=== PATIENT | male | born 1930 | race Caucasian/White ===

== ENCOUNTER 2018-01-13 16:07 | Inpatient (IN) | payer OTHER ==
[~2018-01-13] VITALS: Ht 157.5 cm; Wt 49.9 kg
[~2018-01-13 16:07] MED LIST: ADVAIR 500/501 DISK IH; ADVAIR HFA120 INHALA IH; AMOX TR-K CLV1 EAC4 PO; ASPIR 8181 M1 PO; Advair HFA 115/21 IH; CEFDINIR300 MG PO; DELTASONE20 MG PO; DUONEB 2.5-0.5 M3 ML IH; LEVOFLOXACIN500 MG PO; NOHOMEMEDS; PREDNISONE1 MG PO; PREDNISONE20 MG PO; PROAIR HFA8.5 GM IH; Proventil,Ventolin H IH; SPIRIVA1 INHALATI IH; VENTOLIN HFA18 GM IH
[2018-01-13 17:03] LABS: BASOPHIL (%) 0.3 % (0-1); BASOPHIL COUNT 0.1 K/uL (0-0.1); EOSINOPHIL (%) 0 % (0-5); HEMATOCRIT 35.2 % (38.0-50.0); IMMATURE GRANULOCYTE (%) 0.5 % (0.0-0.7); LYMPHOCYTE (%) 2.7 % (15-42); LYMPHOCYTE COUNT 0.6 K/uL (1.0-2.8); MCH 29.3 PG (29.0-34.0); MCHC 31.3 G/DL (30.0-36.0); MCV 93.9 FL (86-99); MONOCYTE (%) 3.5 % (3-12); MONOCYTE COUNT 0.7 K/uL (0-0.8); NEUTROPHIL COUNT 19.1 K/uL (1.8-6.4); PLATELET COUNT 305 K/uL (156-360); RBC DIS.WIDTH-CV 13.9 % (11.8-14.6); RBC DIS.WIDTH-SD 47.9 % (39-53); RED BLOOD COUNT 3.75 M/uL (4.00-5.50); WHITE BLOOD COUNT 20.6 K/uL (4.1-10.2)
[2018-01-13 17:05] LABS: CARBON DIOXIDE (BICARBONATE) 37.1 MEQ/L (20-31)
[2018-01-13 17:10] LABS: CHLORIDE 99 mEq/L (99-109); POTASSIUM 4.5 mEq/L (3.7-5.4); SODIUM 143 mEq/L (136-147)
[2018-01-13 17:12] LABS: GLUCOSE 122 mg/dL (70-99)
[2018-01-13 17:16] LABS: CREATININE 1.3 mg/dL (0.6-1.3); GFR ESTIMATE (CALCULATED) 56 mL/min/ (58.99-99999)
[2018-01-13 17:17] LABS: UREA NITROGEN (BUN) 25 mg/dL (9-23)
[2018-01-13 17:22] LABS: TROP-I INTERPRETATION NEGATIVE; TROPONIN-I 0.02 ng/mL (0.0-0.30)
[2018-01-13] MEDS ORDERED: AUGMENTIN875 MG PO (17:41)
[2018-01-13] MEDS ORDERED: ROBITUSSIN100 MG/5 M PO (17:42)
[2018-01-13] MEDS ORDERED: ADULT ASPIRIN R81 MG PO (17:42)
[2018-01-13] MEDS ORDERED: VENTOLIN HFA18 GM IH (17:42)
[2018-01-13] MEDS ORDERED: PREDNISONE10 MG PO (17:45)
[2018-01-13] MEDS ORDERED: PEPTO BISMOL240 ML PO (17:50)
[2018-01-13 21:36] VITALS: BP 127/72
[2018-01-14] VITALS: BP 129/67
[2018-01-14 03:48] VITALS: BP 129/67
[2018-01-14 07:02] LABS: BASOPHIL (%) 0.2 % (0-1); EOSINOPHIL (%) 0 % (0-5); HEMATOCRIT 33.6 % (38.0-50.0); HEMOGLOBIN 10.5 G/DL (12.5-16.6); IMMATURE GRANULOCYTE (%) 0.6 % (0.0-0.7); LYMPHOCYTE COUNT 0.4 K/uL (1.0-2.8); MCH 29.2 PG (29.0-34.0); MCHC 31.3 G/DL (30.0-36.0); MCV 93.6 FL (86-99); MONOCYTE (%) 0.2 % (3-12); NEUTROPHIL COUNT 11.7 K/uL (1.8-6.4); PLATELET COUNT 295 K/uL (156-360); RBC DIS.WIDTH-CV 13.9 % (11.8-14.6); RBC DIS.WIDTH-SD 47.8 % (39-53); RED BLOOD COUNT 3.59 M/uL (4.00-5.50); WHITE BLOOD COUNT 12.2 K/uL (4.1-10.2)
[2018-01-14 07:10] VITALS: BP 132/72
[2018-01-14 07:36] LABS: ALBUMIN 2.7 G/DL (3.2-4.8); ALKALINE PHOSPHATASE 49 IU/L (3-129); ALT (GPT) 6 IU/L (3-49); AST (GOT) 10 IU/L (2-34); CHLORIDE 100 MEQ/L (99-109); DIRECT BILIRUBIN 0.1 mg/dL (0.0-0.3); GFR ESTIMATE (CALCULATED) > 59 mL/min/ (58.99-99999); GLUCOSE 139 mg/dL (70-99); MAGNESIUM 1.8 mg/dl (1.3-2.7); POTASSIUM 4.5 MEQ/L (3.7-5.4); SODIUM 142 MEQ/L (136-147); TOTAL BILIRUBIN 0.3 MG/DL (0.0-1.0); TOTAL PROTEIN 5.5 G/DL (6.4-8.3); UREA NITROGEN (BUN) 21 mg/dL (9-23)
[2018-01-14 12:00] VITALS: BP 111/80
[2018-01-14 16:55] VITALS: BP 143/63
[2018-01-14 19:20] VITALS: BP 123/60
[2018-01-15 00:16] VITALS: BP 128/64
[2018-01-15 03:21] VITALS: BP 122/60
[2018-01-15 06:25] LABS: HEMATOCRIT 32.7 % (38.0-50.0); HEMOGLOBIN 10.2 G/DL (12.5-16.6); MCH 29.7 PG (29.0-34.0); MCHC 31.2 G/DL (30.0-36.0); MCV 95.1 FL (86-99); PLATELET COUNT 345 K/uL (156-360); RBC DIS.WIDTH-SD 48.8 % (39-53); RED BLOOD COUNT 3.44 M/uL (4.00-5.50); WHITE BLOOD COUNT 25.3 K/uL (4.1-10.2)
[2018-01-15 06:49] LABS: CHLORIDE 106 MEQ/L (99-109); GFR ESTIMATE (CALCULATED) > 59 mL/min/ (58.99-99999); GLUCOSE 162 mg/dL (70-99); POTASSIUM 4.4 MEQ/L (3.7-5.4); SODIUM 144 MEQ/L (136-147); UREA NITROGEN (BUN) 29 mg/dL (9-23)
[2018-01-15 07:47] VITALS: BP 153/66
[2018-01-15 11:26] VITALS: BP 142/69
[2018-01-15 15:13] VITALS: BP 137/63
[2018-01-15 19:40] VITALS: BP 129/64
[2018-01-16 04:07] VITALS: BP 136/70
[2018-01-16 06:54] LABS: HEMATOCRIT 31.4 % (38.0-50.0); HEMOGLOBIN 9.9 G/DL (12.5-16.6); MCH 29.6 PG (29.0-34.0); MCHC 31.5 G/DL (30.0-36.0); PLATELET COUNT 365 K/uL (156-360); RBC DIS.WIDTH-CV 14.2 % (11.8-14.6); RBC DIS.WIDTH-SD 48.4 % (39-53); RED BLOOD COUNT 3.34 M/uL (4.00-5.50); WHITE BLOOD COUNT 24.1 K/uL (4.1-10.2)
[2018-01-16 07:20] VITALS: BP 152/72
[2018-01-16 16:29] VITALS: BP 141/79
[2018-01-16 19:35] VITALS: BP 134/65
[2018-01-17 00:20] VITALS: BP 140/67
[2018-01-17 07:39] VITALS: BP 157/82
[2018-01-17 15:48] VITALS: BP 163/79
[2018-01-17 20:31] VITALS: BP 152/79
[2018-01-18 00:24] VITALS: BP 161/70
[2018-01-18 04:03] VITALS: BP 160/79
[2018-01-18 07:25] VITALS: BP 146/74
[2018-01-18 09:21] LABS: HEMATOCRIT 38.2 % (38.0-50.0); HEMOGLOBIN 11.8 G/DL (12.5-16.6); MCH 28.6 PG (29.0-34.0); MCHC 30.9 G/DL (30.0-36.0); MCV 92.7 FL (86-99); PLATELET COUNT 422 K/uL (156-360); RBC DIS.WIDTH-SD 47.5 % (39-53); WHITE BLOOD COUNT 19.2 K/uL (4.1-10.2)
[2018-01-18 09:43] LABS: RED BLOOD COUNT 4.12 M/uL (4.00-5.50)
[2018-01-18 09:51] LABS: CHLORIDE 99 MEQ/L (99-109); GFR ESTIMATE (CALCULATED) > 59 mL/min/ (58.99-99999); GLUCOSE 145 mg/dL (70-99); POTASSIUM 4.5 MEQ/L (3.7-5.4); SODIUM 140 MEQ/L (136-147); UREA NITROGEN (BUN) 30 mg/dL (9-23)
[2018-01-18 16:03] VITALS: BP 164/85
[2018-01-19 00:02] VITALS: BP 124/77
[2018-01-19 07:00] VITALS: BP 150/90
[2018-01-19] MEDS ORDERED: AUGMENTIN875 MG PO (08:26)
[2018-01-19] MEDS ORDERED: PREDNISONE10 MG PO (08:26)
[2018-01-19] MEDS ORDERED: SPIRIVA RESPIMAT4 GM IH (08:26)
== END 2018-01-19 13:30 | disposition home health service (06) | DRG 194 ==
LOC: EME → EDBD 16:07 → EDOF 19:29 → 2EAST 19:29 → ENRESERV 19:34 → 2EAST 20:58
PROVIDERS: Emergency Medicine; Hospitalist; Internal Medicine; Physician Assistant Medical
DX: J18.9 Pneumonia, unspecified organism (principal); J44.0 Chronic obstructive pulmonary disease with (acute) lower respiratory infection; J44.1 Chronic obstructive pulmonary disease with (acute) exacerbation; J45.901 Unspecified asthma with (acute) exacerbation; J96.11 Chronic respiratory failure with hypoxia; J96.12 Chronic respiratory failure with hypercapnia; Z99.81 Dependence on supplemental oxygen; R45.850 Homicidal ideations; R45.851 Suicidal ideations; J84.10 Pulmonary fibrosis, unspecified; E86.0 Dehydration; I12.9 Hypertensive chronic kidney disease with stage 1 through stage 4 chronic kidney disease, or unspecified chronic kidney disease; N18.3 Chronic kidney disease, stage 3 (moderate); Z66 Do not resuscitate; Z51.5 Encounter for palliative care; F43.20 Adjustment disorder, unspecified; F32.9 Major depressive disorder, single episode, unspecified; D72.829 Elevated white blood cell count, unspecified; T38.0X5A Adverse effect of glucocorticoids and synthetic analogues, initial encounter; I25.10 Atherosclerotic heart disease of native coronary artery without angina pectoris; N40.0 Benign prostatic hyperplasia without lower urinary tract symptoms; R63.4 Abnormal weight loss; Z68.1 Body mass index [BMI] 19.9 or less, adult; K59.00 Constipation, unspecified; D64.9 Anemia, unspecified; R47.81 Slurred speech; G89.29 Other chronic pain; R10.13 Epigastric pain; F12.10 Cannabis abuse, uncomplicated; F10.11 Alcohol abuse, in remission; Z87.891 Personal history of nicotine dependence; Z60.2 Problems related to living alone; Z79.82 Long term (current) use of aspirin; Z91.14 Patient's other noncompliance with medication regimen; Z82.3 Family history of stroke; Z82.0 Family history of epilepsy and other diseases of the nervous system
CPT/HCPCS: 71046; 71250; 80048; 80076; 81003; 82803; 83605; 83735; 83880; 84484; 85025; 85027; 87040; 87070; 87205; 93005; 94640; 94640 76; 94667; 94668; 94760; 94799; 97530 GP; 99202; 99281; 99285; J0295; J0456; J0692; J1630; J1644; J2060; J2920; J2930; J7030; J7050

== ENCOUNTER 2018-02-16 16:07 | Inpatient (IN) | payer OTHER ==
[~2018-02-16] VITALS: Ht 162.6 cm; Wt 48.5 kg
[~2018-02-16 16:07] MED LIST changes: +ADULT ASPIRIN R81 MG PO; +AUGMENTIN875 MG PO; +PEPTO BISMOL240 ML PO; +PREDNISONE10 MG PO; +ROBITUSSIN100 MG/5 M PO; +SPIRIVA RESPIMAT4 GM IH
[2018-02-16 17:06] LABS: ALBUMIN 3.5 g/dL (3.2-4.8); CHLORIDE 104 mEq/L (99-109); POTASSIUM 4.5 mEq/L (3.7-5.4); SODIUM 143 mEq/L (136-147)
[2018-02-16 17:08] LABS: GLUCOSE 100 mg/dL (70-99)
[2018-02-16 17:09] LABS: TOTAL PROTEIN 6.1 g/dL (6.4-8.3)
[2018-02-16 17:10] LABS: TOTAL BILIRUBIN 0.3 mg/dL (0.0-1.0)
[2018-02-16 17:12] LABS: ALKALINE PHOSPHATASE 63 IU/L (3-129); CREATININE 1.2 mg/dL (0.6-1.3); GFR ESTIMATE (CALCULATED) > 59 mL/min/ (58.99-99999)
[2018-02-16 17:13] LABS: UREA NITROGEN (BUN) 27 mg/dL (9-23)
[2018-02-16 17:14] LABS: AST (GOT) 21 IU/L (2-34)
[2018-02-16 17:15] LABS: ALT (GPT) 12 IU/L (3-49)
[2018-02-16 17:22] LABS: PTT 26.4 SEC (25-37)
[2018-02-16 18:11] LABS: BASOPHIL (%) 0.4 % (0-1); BASOPHIL COUNT 0.1 K/uL (0-0.1); EOSINOPHIL (%) 0.6 % (0-5); EOSINOPHIL COUNT 0.1 K/uL (0-0.3); HEMATOCRIT 33.9 % (38.0-50.0); HEMATOLOGY COMMENT 1 SN; HEMOGLOBIN 10.7 G/DL (12.5-16.6); IMMATURE GRANULOCYTE (%) 0.5 % (0.0-0.7); LYMPHOCYTE (%) 14.3 % (15-42); MCH 29.5 PG (29.0-34.0); MCHC 31.6 G/DL (30.0-36.0); MCV 93.4 FL (86-99); MONOCYTE (%) 6.1 % (3-12); MONOCYTE COUNT 0.8 K/uL (0-0.8); NEUTROPHIL (%) 78.1 % (45-76); NEUTROPHIL COUNT 10.7 K/uL (1.8-6.4); PLAT.SUFFICIENCY ADEQUATE; PLATELET COUNT 236 K/uL (156-360); RBC DIS.WIDTH-CV 15.2 % (11.8-14.6); RBC DIS.WIDTH-SD 52.3 % (39-53); RED BLOOD COUNT 3.63 M/uL (4.00-5.50); WHITE BLOOD COUNT 13.7 K/uL (4.1-10.2)
[2018-02-16 18:43] LABS: APPEARANCE CLEAR ((CLEAR)); BILIRUBIN NEGATIVE; BLOOD NEGATIVE; COLOR STRAW ((YELLOW)); GLUCOSE (STRIP) NEGATIVE; KETONES NEGATIVE; LEUKOCYTES TRACE; NITRITE NEGATIVE; PROTEIN (STRIP) NEGATIVE; SPECIFIC GRAVITY 1.014 (1.000-1.030); UROBILINOGEN 0.2 MG/DL (0.2-1.0)
[2018-02-16 18:53] LABS: BACTERIA NONE SEEN /HPF; EPITHELIAL CELLS RARE /HPF; MUCUS NONE SEEN /LPF; RED BLOOD CELLS 0-5 /HPF (0-5); UCUL ADDED? NO; WHITE BLOOD CELLS 0-5 /HPF (0-5)
[2018-02-16] MEDS ORDERED: LITE COAT ASPI325 M1 PO (19:06)
[2018-02-16] MEDS ORDERED: SPIRIVA RESPIMAT4 GM IH (19:06)
[2018-02-16 21:11] LABS: HEMATOCRIT 34.7 % (38.0-50.0); HEMOGLOBIN 10.8 G/DL (12.5-16.6); MCH 29.6 PG (29.0-34.0); MCHC 31.1 G/DL (30.0-36.0); MCV 95.1 FL (86-99); PLATELET COUNT 232 K/uL (156-360); RBC DIS.WIDTH-CV 15.4 % (11.8-14.6); RED BLOOD COUNT 3.65 M/uL (4.00-5.50); WHITE BLOOD COUNT 11.6 K/uL (4.1-10.2)
[2018-02-16 21:32] VITALS: BP 156/67
[2018-02-17] VITALS: BP 140/64
[2018-02-17 00:47] LABS: HEMATOCRIT 30.5 % (38.0-50.0); HEMOGLOBIN 9.8 G/DL (12.5-16.6); MCV 93.8 FL (86-99)
[2018-02-17 04:03] VITALS: BP 140/61
[2018-02-17 06:00] LABS: HEMATOCRIT 32.3 % (38.0-50.0); HEMOGLOBIN 9.9 G/DL (12.5-16.6); MCV 94.2 FL (86-99)
[2018-02-17 06:28] LABS: CHLORIDE 108 MEQ/L (99-109); GFR ESTIMATE (CALCULATED) > 59 mL/min/ (58.99-99999); GLUCOSE 83 mg/dL (70-99); POTASSIUM 4.4 MEQ/L (3.7-5.4); SODIUM 145 MEQ/L (136-147); UREA NITROGEN (BUN) 19 mg/dL (9-23)
[2018-02-17 07:52] VITALS: BP 131/63
[2018-02-17 12:11] VITALS: BP 137/67
[2018-02-17 15:22] VITALS: BP 133/65
[2018-02-17 16:18] LABS: HEMATOCRIT 35.8 % (38.0-50.0); HEMOGLOBIN 11.1 G/DL (12.5-16.6)
[2018-02-17 20:05] VITALS: BP 119/82
[2018-02-18] VITALS (8 sets, daily range): BP systolic 96–135; BP diastolic 51–66
[2018-02-18 05:18] LABS: HEMATOCRIT 33.2 % (38.0-50.0); HEMOGLOBIN 10.1 G/DL (12.5-16.6); MCH 28.9 PG (29.0-34.0); MCHC 30.4 G/DL (30.0-36.0); MCV 95.1 FL (86-99); PLATELET COUNT 226 K/uL (156-360); RBC DIS.WIDTH-CV 15.4 % (11.8-14.6); RBC DIS.WIDTH-SD 53.2 % (39-53); RED BLOOD COUNT 3.49 M/uL (4.00-5.50); WHITE BLOOD COUNT 8.7 K/uL (4.1-10.2)
[2018-02-19 04:03] VITALS: BP 127/60
[2018-02-19 05:51] LABS: BASOPHIL (%) 0.3 % (0-1); EOSINOPHIL (%) 3.2 % (0-5); EOSINOPHIL COUNT 0.3 K/uL (0-0.3); HEMATOCRIT 30.6 % (38.0-50.0); HEMOGLOBIN 9.3 G/DL (12.5-16.6); IMMATURE GRANULOCYTE (%) 0.3 % (0.0-0.7); LYMPHOCYTE (%) 17.7 % (15-42); LYMPHOCYTE COUNT 1.6 K/uL (1.0-2.8); MCH 28.9 PG (29.0-34.0); MCHC 30.4 G/DL (30.0-36.0); MONOCYTE (%) 9.6 % (3-12); MONOCYTE COUNT 0.9 K/uL (0-0.8); NEUTROPHIL (%) 68.9 % (45-76); NEUTROPHIL COUNT 6.2 K/uL (1.8-6.4); PLATELET COUNT 222 K/uL (156-360); RBC DIS.WIDTH-CV 15.7 % (11.8-14.6); RBC DIS.WIDTH-SD 54.8 % (39-53); RED BLOOD COUNT 3.22 M/uL (4.00-5.50)
[2018-02-19 07:39] VITALS: BP 131/76
[2018-02-19 11:37] VITALS: BP 165/60
[2018-02-19 14:07] LABS: STOOL OCCULT BLD 1ST SPECIMEN POSITIVE
[2018-02-19 16:01] VITALS: BP 110/67
[2018-02-20 04:25] VITALS: BP 125/60
[2018-02-20 06:28] LABS: HEMOGLOBIN 9.9 G/DL (12.5-16.6); MCH 29.1 PG (29.0-34.0); MCHC 30.9 G/DL (30.0-36.0); MCV 94.1 FL (86-99); PLATELET COUNT 249 K/uL (156-360); RBC DIS.WIDTH-CV 15.6 % (11.8-14.6); RBC DIS.WIDTH-SD 53.4 % (39-53); WHITE BLOOD COUNT 16.6 K/uL (4.1-10.2)
[2018-02-20 06:56] LABS: CHLORIDE 103 MEQ/L (99-109); GFR ESTIMATE (CALCULATED) > 59 mL/min/ (58.99-99999); GLUCOSE 177 mg/dL (70-99); SODIUM 142 MEQ/L (136-147)
[2018-02-20 06:57] LABS: POTASSIUM 5.9 MEQ/L (3.7-5.4); UREA NITROGEN (BUN) 40 mg/dL (9-23)
[2018-02-20 08:19] VITALS: BP 121/60
[2018-02-20 17:08] VITALS: BP 118/56
[2018-02-21 00:01] VITALS: BP 115/58
[2018-02-21 05:52] LABS: HEMOGLOBIN 10.6 G/DL (12.5-16.6); MCH 29.4 PG (29.0-34.0); MCHC 31.2 G/DL (30.0-36.0); MCV 94.2 FL (86-99); PLATELET COUNT 282 K/uL (156-360); RBC DIS.WIDTH-CV 15.7 % (11.8-14.6); RBC DIS.WIDTH-SD 54.3 % (39-53); RED BLOOD COUNT 3.61 M/uL (4.00-5.50); WHITE BLOOD COUNT 24.3 K/uL (4.1-10.2)
[2018-02-21 06:29] LABS: ALBUMIN 3.2 G/DL (3.2-4.8); CHLORIDE 102 MEQ/L (99-109); CREATININE 1.4 MG/DL (0.6-1.3); GFR ESTIMATE (CALCULATED) 51 mL/min/ (58.99-99999); GLUCOSE 115 mg/dL (70-99); PHOSPHORUS 3.7 mg/dL (2.5-4.9); POTASSIUM 4.9 MEQ/L (3.7-5.4); SODIUM 145 MEQ/L (136-147); UREA NITROGEN (BUN) 53 mg/dL (9-23)
[2018-02-21 07:26] VITALS: BP 131/60
[2018-02-21 15:37] VITALS: BP 135/63
[2018-02-21 23:55] VITALS: BP 119/58
[2018-02-22 05:52] LABS: HEMATOCRIT 32.6 % (38.0-50.0); MCH 28.8 PG (29.0-34.0); MCHC 30.7 G/DL (30.0-36.0); MCV 93.9 FL (86-99); PLATELET COUNT 267 K/uL (156-360); RBC DIS.WIDTH-CV 15.9 % (11.8-14.6); RBC DIS.WIDTH-SD 54.8 % (39-53); RED BLOOD COUNT 3.47 M/uL (4.00-5.50); WHITE BLOOD COUNT 21.3 K/uL (4.1-10.2)
[2018-02-22 06:22] LABS: CHLORIDE 104 MEQ/L (99-109); CREATININE 1.3 MG/DL (0.6-1.3); GFR ESTIMATE (CALCULATED) 56 mL/min/ (58.99-99999); GLUCOSE 88 mg/dL (70-99); POTASSIUM 4.9 MEQ/L (3.7-5.4); SODIUM 144 MEQ/L (136-147); UREA NITROGEN (BUN) 44 mg/dL (9-23)
[2018-02-22 08:00] VITALS: BP 123/65
[2018-02-22] MEDS ORDERED: PREDNISONE20 MG PO (14:22)
[2018-02-22] MEDS ORDERED: LEVAQUIN750 MG PO ×2 (14:22→15:13)
[2018-02-22] MEDS ORDERED: PANTOPRAZOLE SO40 MG PO (14:22)
== END 2018-02-22 15:35 | disposition home or self-care (01) | DRG 377 ==
LOC: EME 16:07 → EDOF 19:52 → 5SOUTH 19:52 → ENRESERV 19:53 → 5SOUTH 20:48
PROVIDERS: Emergency Medicine; Hospitalist; Internal Medicine Gastroenterology; Physician Assistant Medical
PROC: 0DB68ZX Excision of Stomach, Via Natural or Artificial Opening Endoscopic, Diagnostic (ICD-10-PCS; principal; 2018-02-21)
DX: K62.5 Hemorrhage of anus and rectum (principal); J44.0 Chronic obstructive pulmonary disease with (acute) lower respiratory infection; J96.12 Chronic respiratory failure with hypercapnia; J13 Pneumonia due to Streptococcus pneumoniae; N17.9 Acute kidney failure, unspecified; E87.5 Hyperkalemia; D72.829 Elevated white blood cell count, unspecified; T38.0X5A Adverse effect of glucocorticoids and synthetic analogues, initial encounter; F10.11 Alcohol abuse, in remission; K44.9 Diaphragmatic hernia without obstruction or gangrene; K29.70 Gastritis, unspecified, without bleeding; D64.9 Anemia, unspecified; J84.10 Pulmonary fibrosis, unspecified; J96.11 Chronic respiratory failure with hypoxia; Y95 Nosocomial condition; J44.1 Chronic obstructive pulmonary disease with (acute) exacerbation; E78.00 Pure hypercholesterolemia, unspecified; K25.4 Chronic or unspecified gastric ulcer with hemorrhage; Z91.14 Patient's other noncompliance with medication regimen; I25.10 Atherosclerotic heart disease of native coronary artery without angina pectoris; K57.90 Diverticulosis of intestine, part unspecified, without perforation or abscess without bleeding; R45.1 Restlessness and agitation; I11.0 Hypertensive heart disease with heart failure; N40.0 Benign prostatic hyperplasia without lower urinary tract symptoms; Z91.19 Patient's noncompliance with other medical treatment and regimen; Z87.891 Personal history of nicotine dependence; Z99.81 Dependence on supplemental oxygen; N28.1 Cyst of kidney, acquired; Z68.1 Body mass index [BMI] 19.9 or less, adult
CPT/HCPCS: 71046; 74177; 80048; 80053; 80069; 81003; 82272; 83605; 85014; 85018; 85025; 85027; 85610; 85730; 86850; 86900; 86901; 87040; 87070; 87205; 87449; 88305; 88342 TC; 94640; 94640 76; 94760; 94799; 97530 GO; 99202; 99281; 99285; A6214; C9113; J0456; J0692; J0696; J2920; J3370; J7030; J7512

== ENCOUNTER 2018-03-30 13:42 | Emergency (ER) | payer OTHER ==
[~2018-03-30] VITALS: Ht 160 cm; Wt 48.1 kg
[~2018-03-30 13:42] MED LIST changes: +LEVAQUIN750 MG PO; +LITE COAT ASPI325 M1 PO; +PANTOPRAZOLE SO40 MG PO
[2018-03-30 15:12] LABS: BASOPHIL (%) 0.4 % (0-1); EOSINOPHIL (%) 0.6 % (0-5); EOSINOPHIL COUNT 0.1 K/uL (0-0.3); HEMATOCRIT 33.6 % (38.0-50.0); HEMOGLOBIN 10.6 G/DL (12.5-16.6); IMMATURE GRANULOCYTE (%) 0.4 % (0.0-0.7); LYMPHOCYTE (%) 16.9 % (15-42); LYMPHOCYTE COUNT 1.6 K/uL (1.0-2.8); MCH 29.4 PG (29.0-34.0); MCHC 31.5 G/DL (30.0-36.0); MCV 93.1 FL (86-99); MONOCYTE (%) 6.6 % (3-12); MONOCYTE COUNT 0.6 K/uL (0-0.8); NEUTROPHIL (%) 75.1 % (45-76); NEUTROPHIL COUNT 7.2 K/uL (1.8-6.4); PLATELET COUNT 275 K/uL (156-360); RBC DIS.WIDTH-CV 14.1 % (11.8-14.6); RBC DIS.WIDTH-SD 48.2 % (39-53); RED BLOOD COUNT 3.61 M/uL (4.00-5.50); WHITE BLOOD COUNT 9.6 K/uL (4.1-10.2)
[2018-03-30 15:20] LABS: PTT 29.1 SEC (25-37)
[2018-03-30 15:21] LABS: CHLORIDE 103 mEq/L (99-109); SODIUM 145 mEq/L (136-147)
[2018-03-30 15:23] LABS: GLUCOSE 109 mg/dL (70-99)
[2018-03-30 15:26] LABS: CREATININE 1.3 mg/dL (0.6-1.3); GFR ESTIMATE (CALCULATED) 56 mL/min/ (58.99-99999)
[2018-03-30 15:27] LABS: UREA NITROGEN (BUN) 27 mg/dL (9-23)
[2018-03-30 15:33] LABS: TROP-I INTERPRETATION NEGATIVE; TROPONIN-I 0.02 ng/mL (0.0-0.30)
[2018-03-30] MEDS ORDERED: ULTRAM50 MG PO (18:59)
[2018-03-30 19:09] VITALS: BP 132/60
== END 2018-03-30 21:38 | disposition home or self-care (01) ==
LOC: EME 13:42
PROVIDERS: Emergency Medicine
DX: M47.892 Other spondylosis, cervical region (principal); J44.9 Chronic obstructive pulmonary disease, unspecified; I10 Essential (primary) hypertension; I50.9 Heart failure, unspecified; Z79.51 Long term (current) use of inhaled steroids; Z87.891 Personal history of nicotine dependence; Z87.19 Personal history of other diseases of the digestive system
CPT/HCPCS: 71045; 72040; 80048; 84484; 85025; 85610; 85730; 93005; 94640; 99281; 99284

== ENCOUNTER 2018-04-03 17:34 | Inpatient (IN) | payer OTHER ==
[~2018-04-03] VITALS: Ht 157.5 cm; Wt 45.2 kg
[~2018-04-03 17:34] MED LIST changes: +ULTRAM50 MG PO
[2018-04-03 18:44] LABS: HEMATOCRIT 34.1 % (38.0-50.0); HEMOGLOBIN 10.9 G/DL (12.5-16.6); MCH 29.3 PG (29.0-34.0); MCV 91.7 FL (86-99); RBC DIS.WIDTH-SD 47.4 % (39-53); RED BLOOD COUNT 3.72 M/uL (4.00-5.50); WHITE BLOOD COUNT 18.6 K/uL (4.1-10.2)
[2018-04-03 18:57] LABS: CHLORIDE 106 mEq/L (99-109); POTASSIUM 5.4 mEq/L (3.7-5.4); SODIUM 144 mEq/L (136-147)
[2018-04-03 18:59] LABS: GLUCOSE 111 mg/dL (70-99)
[2018-04-03 19:02] LABS: CREATININE 1.7 mg/dL (0.6-1.3); GFR ESTIMATE (CALCULATED) 41 mL/min/ (58.99-99999)
[2018-04-03 19:03] LABS: UREA NITROGEN (BUN) 27 mg/dL (9-23)
[2018-04-03 20:11] LABS: PLAT.SUFFICIENCY ADEQUATE; PLATELET CLUMPS PRESENT - PLATELET COUNT APPEARS ADQ.
[2018-04-03 20:36] LABS: COMMENTS - BLOOD GASES C+; DEVICE NC; O2 FLOW 2 L/MIN; PCO2 54 mm Hg (35-45); PO2 93 mm Hg (80-100); SITE RB; TOTAL RESP RATE 20 resp/min; pH 7.38 (7.35-7.45)
[2018-04-03 20:37] LABS: BASE EXCESS 5.7 mEq/L (-3 to +3); BICARBONATE 31.9 mEq/L (22-26); METHEMOGLOBIN 1.2 % (0-1.5)
[2018-04-03] MEDS ORDERED: ALBUTEROL2.5 MG/3 M IH (21:15)
[2018-04-03] MEDS ORDERED: KLOR-CON M2020 MEQ PO (21:16)
[2018-04-03] MEDS ORDERED: LASIX20 MG PO (21:17)
[2018-04-03 23:57] VITALS: BP 137/64
[2018-04-04] VITALS (7 sets, daily range): BP systolic 120–142; BP diastolic 58–65
[2018-04-04 07:15] LABS: HEMATOCRIT 33.4 % (38.0-50.0); HEMOGLOBIN 10.2 G/DL (12.5-16.6); MCH 28.3 PG (29.0-34.0); MCHC 30.5 G/DL (30.0-36.0); MCV 92.8 FL (86-99); PLATELET COUNT 331 K/uL (156-360); RBC DIS.WIDTH-CV 13.7 % (11.8-14.6); RBC DIS.WIDTH-SD 46.8 % (39-53); WHITE BLOOD COUNT 5.9 K/uL (4.1-10.2)
[2018-04-04 07:36] LABS: CHLORIDE 106 MEQ/L (99-109); GFR ESTIMATE (CALCULATED) > 59 mL/min/ (58.99-99999); POTASSIUM 5.2 MEQ/L (3.7-5.4); SODIUM 146 MEQ/L (136-147); UREA NITROGEN (BUN) 22 mg/dL (9-23)
[2018-04-04 07:38] LABS: CREATININE 1.2 MG/DL (0.6-1.3); GLUCOSE 191 mg/dL (70-99)
[2018-04-04 07:47] LABS: APPEARANCE CLEAR ((CLEAR)); BILIRUBIN NEGATIVE; BLOOD NEGATIVE; COLOR YELLOW ((YELLOW)); GLUCOSE (STRIP) NEGATIVE; KETONES NEGATIVE; LEUKOCYTES LARGE; NITRITE NEGATIVE; PROTEIN (STRIP) NEGATIVE; SPECIFIC GRAVITY 1.016 (1.000-1.030); UROBILINOGEN 0.2 MG/DL (0.2-1.0)
[2018-04-04 08:09] LABS: BACTERIA NONE SEEN /HPF; EPITHELIAL CELLS RARE /HPF; HYALINE CASTS 0-5 /LPF; MUCUS TRACE /LPF; RED BLOOD CELLS 0-5 /HPF (0-5); UCUL ADDED? YES
[2018-04-05 04:18] VITALS: BP 115/55
[2018-04-05 06:08] LABS: HEMATOCRIT 31.2 % (38.0-50.0); HEMOGLOBIN 9.6 G/DL (12.5-16.6); MCH 28.5 PG (29.0-34.0); MCHC 30.8 G/DL (30.0-36.0); MCV 92.6 FL (86-99); PLATELET COUNT 331 K/uL (156-360); RBC DIS.WIDTH-CV 13.7 % (11.8-14.6); RBC DIS.WIDTH-SD 46.8 % (39-53); RED BLOOD COUNT 3.37 M/uL (4.00-5.50); WHITE BLOOD COUNT 16.2 K/uL (4.1-10.2)
[2018-04-05 06:48] LABS: CHLORIDE 104 MEQ/L (99-109); CREATININE 1.2 MG/DL (0.6-1.3); GFR ESTIMATE (CALCULATED) > 59 mL/min/ (58.99-99999); POTASSIUM 5.4 MEQ/L (3.7-5.4); SODIUM 142 MEQ/L (136-147); UREA NITROGEN (BUN) 32 mg/dL (9-23)
[2018-04-05 06:51] LABS: GLUCOSE 112 mg/dL (70-99)
[2018-04-05 07:21] VITALS: BP 121/56
[2018-04-05 11:25] VITALS: BP 120/75
[2018-04-05 15:25] VITALS: BP 115/55
[2018-04-05 22:38] VITALS: BP 116/59
[2018-04-06 07:15] VITALS: BP 143/63
[2018-04-06] MEDS ORDERED: DUONEB 2.5-0.5 M3 ML AEROSOL (10:28)
[2018-04-06] MEDS ORDERED: CEFTIN500 MG PO (10:29)
== END 2018-04-06 15:00 | disposition home health service (06) | DRG 190 ==
LOC: EME 17:34 → 5EAST 20:52 → EDOF 20:52 → 3EAST 20:52 → CANRESERV 20:53 → ENRESERV 20:53 → 3EAST 23:40 → ENRESERV 04-04 10:37 → 5EAST 04-04 13:14
PROVIDERS: Hospitalist; Internal Medicine; Nurse Practitioner Family
DX: J44.1 Chronic obstructive pulmonary disease with (acute) exacerbation (principal); J18.9 Pneumonia, unspecified organism; J44.0 Chronic obstructive pulmonary disease with (acute) lower respiratory infection; N17.9 Acute kidney failure, unspecified; J96.11 Chronic respiratory failure with hypoxia; Z99.81 Dependence on supplemental oxygen; I12.9 Hypertensive chronic kidney disease with stage 1 through stage 4 chronic kidney disease, or unspecified chronic kidney disease; N18.1 Chronic kidney disease, stage 1; D63.1 Anemia in chronic kidney disease; R45.1 Restlessness and agitation; E78.00 Pure hypercholesterolemia, unspecified; E78.5 Hyperlipidemia, unspecified; I25.10 Atherosclerotic heart disease of native coronary artery without angina pectoris; Z87.891 Personal history of nicotine dependence; Y95 Nosocomial condition
CPT/HCPCS: 36600; 71046; 80048; 81003; 82803; 83605; 85027; 87040; 87070; 87086; 87205; 93005; 94640; 94760; 94799; 99281; 99285; J0456; J0692; J0696; J1644; J2930; J7030; J7512